=== PATIENT | female | born 1985 | race Caucasian/White ===

== ENCOUNTER 2019-10-30 15:42 | Inpatient (IN) | payer OTHER ==
[2019-10-30] MEDS ORDERED: SODIUM CHLORIDE 0.9% 1,000 ML IV ONE (16:13)
[2019-10-30 16:42] LABS: Basophils # (A) 0.1 k/uL (0-0.2); Basophils % (A) 1 %; Eosinophils # (A) 0.1 k/uL (0-0.7); Eosinophils % (A) 1 %; HCT 38.4 % (34.0-46.0); HGB 12.5 gm/dL (11.4-16.0); Lymphocytes % (A) 17 %; MCH 29.8 pg (25.0-35.0); MCHC 32.7 g/dL (31.0-37.0); MCV 91.2 fL (80.0-100.0); Mean Platelet Volume 8.4; Monocytes # (A) 0.6 k/uL (0-1.0); Monocytes % (A) 5 %; Neutrophils # (A) 8.7 k/uL (1.3-7.7); Neutrophils % (A) 74 %; Platelet Count 367 k/uL (150-450); RBC 4.21 m/uL (3.80-5.40); RDW 12.5 % (11.5-15.5); WBC 11.7 k/uL (3.8-10.6)
[2019-10-30 16:50] LABS: ALT 12 U/L (4-34); AST 24 U/L (14-36); African American GFR (CKD) >90 (>60 ml/min/1.73 sqM); Albumin 4.3 g/dL (3.5-5.0); Alcohol <10 mg/dL; Alkaline Phosphatase 100 U/L (38-126); Anion Gap 10 mmol/L; Blood Urea Nitrogen 7 mg/dL (7-17); Calcium 9.6 mg/dL (8.4-10.2); Carbon Dioxide 23 mmol/L (22-30); Chloride 107 mmol/L (98-107); Glucose 103 mg/dL (74-99); Non-African American GFR(CKD) >90 (>60 ml/min/1.73 sqM); Sodium 140 mmol/L (137-145); Total Bilirubin 0.7 mg/dL (0.2-1.3); Total Protein 7.9 g/dL (6.3-8.2)
[2019-10-30 16:53] LABS: Amorphous Sediment,Urine Rare /hpf; Appearance,Urine Cloudy (Clear); Bacteria,Urine Occasional /hpf; Bilirubin,Urine Negative (Negative); Blood,Urine Small (Negative); Color,Urine Light Yellow; Glucose,Urine (UA) Negative (Negative); Ketones,Urine Negative (Negative); Leukocyte Esterase,Urine Trace (Negative); Nitrite,Urine Negative (Negative); Protein,Urine Negative (Negative); RBC,Urine 2 /hpf (0-5); Specific Gravity,Urine 1.004 (1.001-1.035); Squamous Epithelial Cell,Urine 7 /hpf (0-4); Urobilinogen,Urine <2.0 mg/dL (<2.0); WBC,Urine 5 /hpf (0-5)
--- NOTE | 2019-10-30 16:58 | ED ---
General Adult HPI - General Chief complaint: Altered Mental Status Stated complaint: Altered Mental Status Time Seen by Provider: 10/30/19 15:52 Source: patient, EMS, RN notes reviewed Mode of arrival: EMS Limitations: altered mental status - History of Present Illness Initial comments: Patient is a pleasant 34-year-old female presenting to the emergency department by EMS. Patient was [place] near [place] No reported accident. Patient was unclear where she was. Patient is still unclear where she has. Patient is unclear where she lives however knows that her parents live in [place]. Patient is unclear what year it is. Patient does complain of headache and states it is moderate to severe in the superior portion. Patient then states she has discomfort several other areas including her chest back and abdomen. Patient does not recall being in any automobile accident. Patient does not believe she is . Patient does not believe she has any history of mental health disease. Patient does not believe that she uses street drugs. Patient does not feel confident regarding her answers. Review of Systems ROS Statement: Those systems with pertinent positive or pertinent negative responses have been documented in the HPI. ROS Other: All systems not noted in ROS Statement are negative. Constitutional: Denies: fever Eyes: Denies: eye pain ENT: Denies: ear pain Respiratory: Denies: cough Cardiovascular: Reports: as per HPI Endocrine: Denies: fatigue Gastrointestinal: Reports: abdominal pain Genitourinary: Denies: dysuria Musculoskeletal: Reports: back pain (Bilateral CVA). Denies: arthralgia Neurological: Reports: headache, confusion. Denies: weakness Past Medical History Past Medical History: No Reported History History of Any Multi-Drug Resistant Organisms: None Reported Past Surgical History: No Surgical Hx Reported Smoking Status: Never smoker Past Alcohol Use History: None Reported Past Drug Use History: None Reported General Exam Limitations: altered mental status General appearance: alert, in no apparent distress Head exam: Present: atraumatic, normocephalic Eye exam: Present: normal appearance, PERRL, EOMI ENT exam: Present: normal oropharynx Neck exam: Present: normal inspection. Absent: tenderness, meningismus Respiratory exam: Present: normal lung sounds bilaterally Cardiovascular Exam: Present: regular rate, normal rhythm GI/Abdominal exam: Present: soft, tenderness (Mild diffuse tenderness). Absent: distended Extremities exam: Present: normal inspection. Absent: tenderness Back exam: Present: CVA tenderness (R), CVA tenderness (L) Neurological exam: Present: alert, altered, CN II-XII intact. Absent: oriented X3, motor sensory deficit Expanded Neurological exam: Present: protecting the airway Patient oriented to: Present: person. Absent: place, time Speech: Present: fluid speech Cranial nerves: EOM's Intact: Normal Motor strength exam: RUE: 5, LUE: 5, RLE: 5, LLE: 5 Eye Response: (4) open spontaneously Motor Response: (6) obeys commands Verbal Response: (4) confused conversation Psychiatric exam: Present: normal affect, normal mood Skin exam: Present: normal color Course Vital Signs 10/30/19 15:47 Temperature 98.0 F Pulse Rate 90 Respiratory 16 Rate Blood Pressure 138/73 O2 Sat by Pulse 99 Oximetry EKG Findings - EKG Comments: EKG Findings:: Normal sinus rhythm at 75. DE 12. QRS 88. QT 394. QTC 439. Normal axis. Normal QRS. No acute ST change. Medical Decision Making - Medical Decision Making Patient reevaluated and is somewhat improved. Patient does have a friend at bedside. History does appear somewhat inconsistent. Police are present and discussing with patient. Patient is somewhat delayed in answering specific questions about her past and current living situation however is able to orient 3. Her friend seems to help a little bit. Patient is updated on results. Case was discussed with Dr. Sidhu, who will admit covering for hospital call. - Lab Data Result diagrams: 10/30/19 16:30 10/30/19 16:30 Lab Results 10/30/19 10/30/19 10/30/19 Range/Units 16:30 16:30 16:30 WBC 11.7 H (3.8-10.6) k/uL RBC 4.21 (3.80-5.40) m/uL Hgb 12.5 (11.4-16.0) gm/dL Hct 38.4 (34.0-46.0) % MCV 91.2 (80.0-100.0) fL MCH 29.8 (25.0-35.0) pg MCHC 32.7 (31.0-37.0) g/dL RDW 12.5 (11.5-15.5) % Plt Count 367 (150-450) k/uL Neutrophils % 74 % Lymphocytes % 17 % Monocytes % 5 % Eosinophils % 1 % Basophils % 1 % Neutrophils # 8.7 H (1.3-7.7) k/uL Lymphocytes # 2.0 (1.0-4.8) k/uL Monocytes # 0.6 (0-1.0) k/uL Eosinophils # 0.1 (0-0.7) k/uL Basophils # 0.1 (0-0.2) k/uL PT (9.0-12.0) sec INR (<1.2) APTT (22.0-30.0) sec Sodium 140 (137-145) mmol/L Potassium 4.0 (3.5-5.1) mmol/L Chloride 107 (98-107) mmol/L Carbon Dioxide 23 (22-30) mmol/L Anion Gap 10 mmol/L BUN 7 (7-17) mg/dL Creatinine 0.71 (0.52-1.04) mg/dL Est GFR (CKD-EPI)AfAm >90 (>60 ml/min/1.73 sqM) Est GFR (CKD-EPI)NonAf >90 (>60 ml/min/1.73 sqM) Glucose 103 H (74-99) mg/dL Calcium 9.6 (8.4-10.2) mg/dL Total Bilirubin 0.7 (0.2-1.3) mg/dL AST 24 (14-36) U/L ALT 12 (4-34) U/L Alkaline Phosphatase 100 (38-126) U/L Troponin I (0.000-0.034) ng/mL Total Protein 7.9 (6.3-8.2) g/dL Albumin 4.3 (3.5-5.0) g/dL Urine Color Light Yellow Urine Appearance Cloudy H (Clear) Urine pH 6.0 (5.0-8.0) Ur Specific [place] 1.004 (1.001-1.035) Urine Protein Negative (Negative) Urine Glucose (UA) Negative (Negative) Urine Ketones Negative (Negative) Urine Blood Small H (Negative) Urine Nitrite Negative (Negative) Urine Bilirubin Negative (Negative) Urine Urobilinogen <2.0 (<2.0) mg/dL Ur Leukocyte Esterase Trace H (Negative) Urine RBC 2 (0-5) /hpf Urine WBC 5 (0-5) /hpf Ur Squamous Epith Cells 7 H (0-4) /hpf Amorphous Sediment Rare H (None) /hpf Urine Bacteria Occasional H (None) /hpf Urine HCG, Qual (Not Detectd) Urine Opiates Screen Not Detected (NotDetected) Ur Oxycodone Screen Not Detected (NotDetected) Urine Methadone Screen Not Detected (NotDetected) Ur Propoxyphene Screen Not Detected (NotDetected) Ur Barbiturates Screen Not Detected (NotDetected) U Tricyclic Antidepress Not Detected (NotDetected) Ur Phencyclidine Scrn Not Detected (NotDetected) Ur Amphetamines Screen Not Detected (NotDetected) U Methamphetamines Scrn Not Detected (NotDetected) U Benzodiazepines Scrn Not Detected (NotDetected) Urine Cocaine Screen Not Detected (NotDetected) U Marijuana (THC) Screen Detected H (NotDetected) Serum Alcohol <10 mg/dL 10/30/19 10/30/19 10/30/19 Range/Units 16:30 16:30 16:30 WBC (3.8-10.6) k/uL RBC (3.80-5.40) m/uL Hgb (11.4-16.0) gm/dL Hct (34.0-46.0) % MCV (80.0-100.0) fL MCH (25.0-35.0) pg MCHC (31.0-37.0) g/dL RDW (11.5-15.5) % Plt Count (150-450) k/uL Neutrophils % % Lymphocytes % % Monocytes % % Eosinophils % % Basophils % % Neutrophils # (1.3-7.7) k/uL Lymphocytes # (1.0-4.8) k/uL Monocytes # (0-1.0) k/uL Eosinophils # (0-0.7) k/uL Basophils # (0-0.2) k/uL PT 10.5 (9.0-12.0) sec INR 1.0 (<1.2) APTT 23.5 (22.0-30.0) sec Sodium (137-145) mmol/L Potassium (3.5-5.1) mmol/L Chloride (98-107) mmol/L Carbon Dioxide (22-30) mmol/L Anion Gap mmol/L BUN (7-17) mg/dL Creatinine (0.52-1.04) mg/dL Est GFR (CKD-EPI)AfAm (>60 ml/min/1.73 sqM) Est GFR (CKD-EPI)NonAf (>60 ml/min/1.73 sqM) Glucose (74-99) mg/dL Calcium (8.4-10.2) mg/dL Total Bilirubin (0.2-1.3) mg/dL AST (14-36) U/L ALT (4-34) U/L Alkaline Phosphatase (38-126) U/L Troponin I <0.012 (0.000-0.034) ng/mL Total Protein (6.3-8.2) g/dL Albumin (3.5-5.0) g/dL Urine Color Urine Appearance (Clear) Urine pH (5.0-8.0) Ur Specific [place] (1.001-1.035) Urine Protein (Negative) Urine Glucose (UA) (Negative) Urine Ketones (Negative) Urine Blood (Negative) Urine Nitrite (Negative) Urine Bilirubin (Negative) Urine Urobilinogen (<2.0) mg/dL Ur Leukocyte Esterase (Negative) Urine RBC (0-5) /hpf Urine WBC (0-5) /hpf Ur Squamous Epith Cells (0-4) /hpf Amorphous Sediment (None) /hpf Urine Bacteria (None) /hpf Urine HCG, Qual Not Detected (Not Detectd) Urine Opiates Screen (NotDetected) Ur Oxycodone Screen (NotDetected) Urine Methadone Screen (NotDetected) Ur Propoxyphene Screen (NotDetected) Ur Barbiturates Screen (NotDetected) U Tricyclic Antidepress (NotDetected) Ur Phencyclidine Scrn (NotDetected) Ur Amphetamines Screen (NotDetected) U Methamphetamines Scrn (NotDetected) U Benzodiazepines Scrn (NotDetected) Urine Cocaine Screen (NotDetected) U Marijuana (THC) Screen (NotDetected) Serum Alcohol mg/dL - Radiology Data Radiology results: report reviewed (CT angios of the brain shows no acute process. Computed tomography scan the brain and cervical spine shows no acute process. Computed tomography scan of the chest abdomen and pelvis shows no acute abnormality.) Disposition Clinical Impression: Altered mental status, Amnesia Disposition: ADMITTED IP TO THIS HOSP Is patient prescribed a controlled substance at d/c from ED?: No Referrals: None,Stated [Primary Care Provider] - 1-2 days Decision Time: 19:06
[2019-10-30 16:59] LABS: Partial Thromboplastin Time 23.5 sec (22.0-30.0); Prothrombin Time 10.5 sec (9.0-12.0)
[2019-10-30 17:00] LABS: Amphetamine Screen,Urine Not Detected (NotDetected); Barbiturate Screen,Urine Not Detected (NotDetected); Benzodiazepines Screen,Urine Not Detected (NotDetected); Cocaine Screen,Urine Not Detected (NotDetected); Methadone Screen, Urine Not Detected (NotDetected); Opiate Screen,Urine Not Detected (NotDetected); Oxycodone Screen, Urine Not Detected (NotDetected); Phencyclidine Screen,Urine Not Detected (NotDetected); Tricyclic Antidepressant,Urine Not Detected (NotDetected); Urn Cannabinoid Scrn Detected (NotDetected)
--- NOTE | 2019-10-30 17:45 | CT ---
EXAMINATION TYPE: CT brain diane mccall con DATE OF EXAM: 10/30/2019 COMPARISON: None HISTORY: severe headache, possible trauma CT DLP: 1248.9 mGycm Automated exposure control for dose reduction was used. TECHNIQUE: CT scan of the head and cervical spine are performed without contrast. FINDINGS: There is no acute intracranial hemorrhage, mass effect, or midline shift identified. The ventricles and sulci are within normal limits in size. The globes are intact and the visualized sin uses are clear. Cervical spine is visualized in its entirety from C1 through upper thoracic levels and demonstrates s atisfactory alignment without evidence of acute fracture or dislocation. Prevertebral soft tissue ap pears within normal limits. The C1-C2 articulation is unremarkable. IMPRESSION: 1. There is no acute fracture or dislocation evident in the cervical spine. 2. No acute intracranial hemorrhage, mass effect, or midline shift is seen.
--- NOTE | 2019-10-30 17:52 | CT ---
EXAMINATION TYPE: CT ChestAbdPelvis w con DATE OF EXAM: 10/30/2019 COMPARISON: None HISTORY: severe headache, possible trauma CT DLP: 894.3 mGycm Automated exposure control for dose reduction was used. CONTRAST: CT scan of the chest, abdomen and pelvis is performed without Oral Contrast and with IV Con trast, patient injected with 100 mL of Isovue 370. FINDINGS: LUNGS: The lungs are grossly clear, there is no concerning parenchymal mass or nodule identified. T here is no pleural effusion or pneumothorax seen. The tracheobronchial tree is patent. MEDIASTINUM: There are no greater than 1 cm hilar or mediastinal lymph nodes. No pericardial effusi on is seen. OTHER: No additional significant abnormality is seen. LIVER/GB: No significant abnormality is appreciated. PANCREAS: No significant abnormality is seen. SPLEEN: No significant abnormality is seen. ADRENALS: No significant abnormality is seen. KIDNEYS: No significant abnormality is seen. BOWEL: No significant abnormality is seen. REPRODUCTIVE ORGANS: No gross abnormality seen. LYMPH NODES: No greater than 1 cm abdominal or pelvic lymph nodes are appreciated. OSSEOUS STRUCTURES: No significant abnormality is seen. OTHER: No acute vascular findings. IMPRESSION: No acute osseous fracture, abnormal fluid collection, or evidence of solid organ injury i n the thorax, abdomen, or pelvis.
--- NOTE | 2019-10-30 18:05 | CT ---
EXAMINATION TYPE: CT angio head with contrast and with 3-D reconstruction renderings DATE OF EXAM: 10/30/2019 5:20 PM HISTORY: severe headache, possible trauma TECHNIQUE: Performed with IV Contrast, patient injected with 100 mL of Isovue 370. Automated exposure control for dose reduction was used. 3-D reconstructions. CT DLP: 1016.6 mGycm COMPARISON: CT 10/30/2019 FINDINGS: The anterior and posterior arterial circulation is well visualized, and is negative for aneurysm, yesenia ling defect, or focal stenosis. The dural venous sinuses are patent. The post contrast enhancement pattern is unremarkable. No incidental findings. IMPRESSION: NEGATIVE EXAMINATION.
[2019-10-30] MEDS ORDERED: ACETAMINOPHEN TAB 500 MG TAB PO STA (18:28)
[2019-10-30] MEDS ORDERED: NALOXONE 0.4 MG/ML 1 ML VIAL IV PRN (19:11)
[2019-10-30] MEDS ORDERED: ACETAMINOPHEN TAB 325 MG TAB PO STA (23:28)
[2019-10-30] MEDS: SODIUM CHLORIDE 0.9% 1,000 ML IV SCH (23:44)
--- NOTE | 2019-10-31 01:20 | P.HPIM ---
History of Present Illness H&P Date: 10/30/19 Patient is a 34-year-old female with no known PMH who was brought into the ED by EMS and and in police custody after she was found wandering near the [place]. The patient had reported to the EMS that she had fallen into a [place] earlier today and had hit her head and subsequently lost her memory. The patient reported that she lives [place], with her brother, where she feeds the cats and dogs. She notes that she was trying to walk to a nearby store 6 miles away, which would take her roughly 2 hours by foot. She reports that she does not have any transportation and her brother can be unreliable. The patient reports that her father lives in [place] and her mother lives in [place] who also has custody of her children. The patient also stated that she has 9 step- brothers in [place], who visit her often. She reported that they go hunting and have bon-fires. The patient endorsed a mild to moderate headache along with some diffuse mild neck pain. She denied feeling concerned for her safety. She denied fever, chills, chest pain, nausea, vomiting, abdominal pain. She noted that she feels well and thinks she can be discharged home. She however was unable to provide details regarding the farm where she does live. The patient also denied any illicit substance use. Discussed the case in detail the patient's ED RN and the accompanying police officers. As per the EMS report, when the patient was discovered at the roadside, she was confused. The patient had a cell phone on her which had a single phone number on it, of a contact by the name of Brielle. The EMS contacted the said person who then arrived at the emergency room. As per the RN, Brielle appeared flustered and attempted to convince the patient to leave immediately. She however also had reported to the RN that she barely knows the patient. When the RN attempted to obtain contact information regarding the patient's said brother, the patient gave the name "Prashant". Brielle however mentioned that the brother is instead the patient's boyfriend who goes by the name of Flo. She refused to provide a last name. Brielle then dialed the phone for the RN to speak to Flo who noted that he is in fact the patient's boyfriend and he is concerned for her safety though is not able to come to the hospital to see her. When the RN informed Brielle that the patient continues to be confused and will be staying overnight in the hospital, Brielle reportedly became very upset and anxious. The patient underwent an extensive evaluation in the emergency room with a head/C-spine CT unremarkable, and a chest/abdome/ pelvis CT also unremarkable. EKG revealed normal sinus rhythm at 75 bpm with sinus arrhythmia. Laboratory ev aluation revealed a WBC count of 11.7, hemoglobin 12.5, platelets 367, sodium 140, potassium 4.0, BUN 7, creatinine 0.71, and a glucose of 103, with troponin less than 0.012. Review of Systems Pertinent positives and negatives as discussed in HPI, a complete review of sys tems was performed and all other systems are negative. Past Medical History Past Medical History: No Reported History History of Any Multi-Drug Resistant Organisms: None Reported Past Surgical History: No Surgical Hx Reported Smoking Status: Never smoker Past Alcohol Use History: None Reported Past Drug Use History: None Reported Medications and Allergies Home Medications Medication Instructions Recorded Confirmed Type No Known Home Medications 10/30/19 10/30/19 History Allergies Allergy/AdvReac Type Severity Reaction Status Date / Time Penicillins Allergy Rash/Hives Verified 10/30/19 19:14 Physical Exam Vitals: Vital Signs Temp Pulse Resp BP Pulse Ox 10/30/19 22:26 96.9 F L 79 16 139/88 97 10/30/19 19:35 98 16 153/85 99 10/30/19 15:47 98.0 F 90 16 138/73 99 Intake and Output 10/30/19 10/30/19 10/31/19 14:59 22:59 06:59 Other: Weight 68.039 kg General: non toxic, no distress, appears at stated age, normal weight Derm: no unusual rashes/lesions no unusual ecchymoses, warm, dry Head: atraumatic, normocephalic, symmetric Eyes: EOMI, no lid lag, anicteric sclera, pupils equal round reactive to light ENT: Nose and ears atraumatic, no thrush, no pharyngeal erythema Neck: No thyromegaly, no cervical lymphadenopathy, trachea midline, supple Mouth: no lip lesion, mucus membranes moist Cardiovascular: S1S2 reg, no murmur, positive posterior tibial pulse bilateral, no edema, capillary refill less than 2 seconds Lungs: CTA bilateral, no rhonchi, no rales , no accessory muscle use Abdominal: soft, nontender to palpation, no guarding, no appreciable organomegaly, normal bowel sounds Ext: no gross muscle atrophy, muscle strength 5 out of 5 in all 4 extremities grossly, no contractures, Neuro: CN II-XI grossly intact, light touch intact all 4 extremities, finger to nose within normal limits, Psych: Awake, alert, oriented to person, knows she is in [place] though unable to recall that she is in [place], despite being told by multiple providers previously, oriented to time Results CBC & Chem 7: 10/30/19 16:30 10/30/19 16:30 Labs: Abnormal Lab Results - Last 24 Hours (Table) 10/30/19 10/30/19 10/30/19 Range/Units 16:30 16:30 16:30 WBC 11.7 H (3.8-10.6) k/uL Neutrophils # 8.7 H (1.3-7.7) k/uL Glucose 103 H (74-99) mg/dL Urine Appearance Cloudy H (Clear) Urine Blood Small H (Negative) Ur Leukocyte Esterase Trace H (Negative) Ur Squamous Epith Cells 7 H (0-4) /hpf Amorphous Sediment Rare H (None) /hpf Urine Bacteria Occasional H (None) /hpf U Marijuana (THC) Screen Detected H (NotDetected) Assessment and Plan Plan: Altered mental status, unclear etiology -Concerns regarding possible abuse/human trafficking -Neuro checks -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
[2019-10-31 07:23] LABS: Basophils % (A) 1 %; Eosinophils # (A) 0.3 k/uL (0-0.7); Eosinophils % (A) 3 %; HCT 38.8 % (34.0-46.0); HGB 12.4 gm/dL (11.4-16.0); Lymphocytes # (A) 2.3 k/uL (1.0-4.8); Lymphocytes % (A) 24 %; MCH 29.4 pg (25.0-35.0); MCHC 31.9 g/dL (31.0-37.0); MCV 91.9 fL (80.0-100.0); Mean Platelet Volume 8.5; Monocytes # (A) 0.6 k/uL (0-1.0); Monocytes % (A) 6 %; Neutrophils # (A) 6.1 k/uL (1.3-7.7); Neutrophils % (A) 65 %; Platelet Count 371 k/uL (150-450); RBC 4.22 m/uL (3.80-5.40); RDW 12.4 % (11.5-15.5); WBC 9.5 k/uL (3.8-10.6)
[2019-10-31 07:42] LABS: ALT 11 U/L (4-34); AST 18 U/L (14-36); African American GFR (CKD) >90 (>60 ml/min/1.73 sqM); Albumin 3.8 g/dL (3.5-5.0); Alkaline Phosphatase 78 U/L (38-126); Anion Gap 7 mmol/L; Blood Urea Nitrogen 6 mg/dL (7-17); Calcium 9.3 mg/dL (8.4-10.2); Carbon Dioxide 28 mmol/L (22-30); Chloride 106 mmol/L (98-107); Glucose 85 mg/dL (74-99); Non-African American GFR(CKD) >90 (>60 ml/min/1.73 sqM); Potassium 4.3 mmol/L (3.5-5.1); Sodium 141 mmol/L (137-145); Total Bilirubin 0.5 mg/dL (0.2-1.3); Total Protein 7.2 g/dL (6.3-8.2)
[2019-10-31] MEDS: ACETAMINOPHEN TAB 325 MG TAB PO PRN ×2 (14:13→23:35)
[2019-10-31] MEDS ORDERED: DIAZEPAM 2 MG TAB PO STA (16:18)
--- NOTE | 2019-10-31 16:19 | P.PN ---
Subjective Progress Note Date: 10/31/19 Principal diagnosis: Altered mental status Patient was seen and examined. No acute events overnight. Inconsolable. Patient very tearful and crying, upset over the arrest of her fianc. Patient states that she was found down near [place] when she was simply trying to walk to a store 6 miles away. It is difficult to obtain much more information given the mood of this patient at this time. She denies any chest pain, shortness breath or palpitations. No nausea or vomiting. No fever or chills. She does complain of bilateral flank pain but denies any dysuria or abdominal discomfort. States that she is forgetful person due to history of concussions in the past. Objective - Vital Signs Vital signs: Vital Signs Temp 98.2 F 10/31/19 07:00 Pulse 72 10/31/19 08:50 Resp 12 10/31/19 08:50 BP 118/68 10/31/19 07:00 Pulse Ox 100 10/31/19 07:00 Intake & Output 10/30/19 10/31/19 10/31/19 18:59 06:59 18:59 Weight 68.039 kg 68.039 kg Other: Voiding Method Toilet Toilet # Voids 2 - Exam General: [non toxic], [no distress], [appears at stated age] Derm: [warm], [dry] Head: [atraumatic], [normocephalic], [symmetric] Eyes: [EOMI], [no lid lag], [anicteric sclera] Mouth: [no lip lesion], [mucus membranes moist] Cardiovascular: [S1S2 reg], [no murmur], [positive posterior tibial pulse bilateral], Lungs: [CTA bilateral], [no rhonchi, no rales] , [no accessory muscle use] Abdominal: [soft], [ nontender to palpation], [no guarding], [no appreciable organomegaly] Ext: [no gross muscle atrophy], [no edema], [no contractures] Neuro: [no focal neuro deficits] Psych: [Alert], [oriented], [appropriate affect] - Labs CBC & Chem 7: 10/31/19 06:41 10/31/19 06:41 Labs: Abnormal Lab Results - Last 24 Hours (Table) 10/30/19 10/30/1910/30/20 Range/Units 16:30 16:30 16:30 WBC 11.7 H (3.8-10.6) k/uL Neutrophils # 8.7 H (1.3-7.7) k/uL BUN (7-17) mg/dL Glucose 103 H (74-99) mg/dL Urine Appearance Cloudy H (Clear) Urine Blood Small H (Negative) Ur Leukocyte Esterase Trace H (Negative) Ur Squamous Epith Cells 7 H (0-4) /hpf Amorphous Sediment Rare H (None) /hpf Urine Bacteria Occasional H (None) /hpf U Marijuana (THC) Screen Detected H (NotDetected) 10/31/19 Range/Units 06:41 WBC (3.8-10.6) k/uL Neutrophils # (1.3-7.7) k/uL BUN 6 L (7-17) mg/dL Glucose (74-99) mg/dL Urine Appearance (Clear) Urine Blood (Negative) Ur Leukocyte Esterase (Negative) Ur Squamous Epith Cells (0-4) /hpf Amorphous Sediment (None) /hpf Urine Bacteria (None) /hpf U Marijuana (THC) Screen (NotDetected) Assessment and Plan Assessment: Altered mental status with concerns for possible abuse and human trafficking? Marijuana abuse Abnormal urinalysis CT brain negative. CT C-spine negative. CT head and neck negative. Blood alcohol negative. Jules CT negative. Plans: Follow neurology and psychiatry consultation. Will need collateral information. Continue sitter. Elopement precautions. UDS positive marijuana. Plans: Adivsed to Quit. UA + leukocyte esterase with squamous epithelial cells. Patient with flank pain but Jules CT negative for Pyelonephritis. Plans: Repeat urinalalysis.
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
[2019-11-01] MEDS: SODIUM CHLORIDE 0.9% 1,000 ML IV SCH ×2 (08:35→20:52)
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
[2019-11-01 15:42] LABS: Amorphous Sediment,Urine Few /hpf; Appearance,Urine Cloudy (Clear); Bacteria,Urine Many /hpf; Bilirubin,Urine Negative (Negative); Blood,Urine Negative (Negative); Color,Urine Yellow; Glucose,Urine (UA) Negative (Negative); Hyaline Casts,Urine 1 /lpf (0-2); Ketones,Urine Negative (Negative); Leukocyte Esterase,Urine Moderate (Negative); Mucus,Urine Occasional /hpf; Nitrite,Urine Positive (Negative); Protein,Urine Trace (Negative); RBC,Urine 3 /hpf (0-5); Specific Gravity,Urine 1.022 (1.001-1.035); Squamous Epithelial Cell,Urine 4 /hpf (0-4); Urobilinogen,Urine <2.0 mg/dL (<2.0); WBC,Urine 16 /hpf (0-5)
--- NOTE | 2019-11-01 16:01 | ECHOF ---
Referral Reason:possible syncope MEASUREMENTS -------- HEIGHT: 157.5 cm WEIGHT: 68.0 kg BP: IVSd: 0.9 cm (0.6 - 1.1) LVIDd: 3.9 cm (3.9 - 5.3) LVPWd: 1.0 cm (0.6 - 1.1) IVSs: 1.2 cm LVIDs: 2.5 cm LVPWs: 1.6 cm LAESV Index (A-L): 16.62 ml/m Ao Diam: 2.5 cm (2.0 - 3.7) AV Cusp: 1.7 cm (1.5 - 2.6) LA Diam: 2.1 cm (2.7 - 3.8) MV EXCURSION: 14.967 mm (> 18.000) MV EF SLOPE: 150 mm/s (70 - 150) EPSS: 0.5 cm MV E Alfonso: 1.17 m/s MV A Alfonso: 0.63 m/s MV E/A Ratio: 1.85 RAP: 5.00 mmHg RVSP: 14.05 mmHg TAPSE: 24.40 mm FINDINGS -------- Sinus rhythm. This was a technically good study. The left ventricular size is normal. Left ventricular wall thickness is normal. Overall left vent ricular systolic function is normal with, an EF between 55 - 60 %. The diastolic filling pattern is normal The right ventricle is normal in size. The right ventricular systolic function is normal. The left atrial size is normal. Normal LA size by volume 22+/-6 ml/m2. The right atrial size is normal. Interatrial and interventricular septum intact. The aortic valve is trileaflet and appears structurally normal. The mitral valve is normal. There is trace mitral regurgitation. The tricuspid valve appears structurally normal. Trace tricuspid regurgitation present. Right colette tricular systolic pressure is normal at < 35 mmHg. There is no pulmonic regurgitation present. The aortic root size is normal. Normal inferior vena cava with normal inspiratory collapse consistent with estimated right atrial pre ssure of 5 mmHg. There is no pericardial effusion. CONCLUSIONS -------- 1. Sinus rhythm. 2. This was a technically good study. 3. The left ventricular size is normal. 4. Left ventricular wall thickness is normal. 5. Overall left ventricular systolic function is normal with, an EF between 55 - 60 %. 6. The diastolic filling pattern is normal 7. The right ventricle is normal in size. 8. The right ventricular systolic function is normal. 9. The left atrial size is normal. 10. Normal LA size by volume 22+/-6 ml/m2. 11. The right atrial size is normal. 12. Interatrial and interventricular septum intact. 13. The aortic valve is trileaflet and appears structurally normal. 14. The mitral valve is normal. 15. There is trace mitral regurgitation. 16. The tricuspid valve appears structurally normal. 17. Trace tricuspid regurgitation present. 18. Right ventricular systolic pressure is normal at < 35 mmHg. 19. There is no pulmonic regurgitation present. 20. The aortic root size is normal. 21. Normal inferior vena cava with normal inspiratory collapse consistent with estimated right atrial pressure of 5 mmHg. 22. There is no pericardial effusion. [employer]SPERSONS: Sheridan Fay RDCS
[2019-11-01] MEDS: DIAZEPAM 2 MG TAB PO PRN (17:35)
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
--- NOTE | 2019-11-01 20:51 | US ---
EXAMINATION TYPE: US kidneys/renal and bladder DATE OF EXAM: 11/01/2019 COMPARISON: Correlation CT 10/30/2019 CLINICAL HISTORY: 34-year-old female flank pain. TECHNIQUE: Multiple sonographic images of the kidneys and bladder are obtained. FINDINGS: EXAM MEASUREMENTS: Right Kidney: 10.5 x 3.8 x 5.6 cm Left Kidney: 10.6 x 5.6 x 5.9 cm No hydronephrosis on either side. Bladder: Suboptimally assessed as it is not well distended Bilateral Jets seen: No IMPRESSION: No hydronephrosis. Poor distention of the bladder limits its evaluation.
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
[2019-11-01] MEDS ORDERED: traZODone HCL 50 MG TAB PO PRN (22:38)
[2019-11-02] MEDS: DIAZEPAM 2 MG TAB PO PRN ×2 (01:58→18:35)
[2019-11-02] MEDS: ACETAMINOPHEN TAB 325 MG TAB PO PRN ×3 (04:15→20:09)
[2019-11-02] MEDS: ARIPiprazole 2 MG TAB PO SCH (10:19)
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
[2019-11-02] MEDS: LIDOCAINE 5% PATCH TOPICAL SCH (16:30)
[2019-11-02] MEDS: SODIUM CHLORIDE 0.9% 1,000 ML IV SCH (20:10)
[2019-11-03] MEDS: LIDOCAINE 5% PATCH TOPICAL SCH (08:39)
[2019-11-03] MEDS: ACETAMINOPHEN TAB 325 MG TAB PO PRN (08:40)
[2019-11-03] MEDS: ARIPiprazole 2 MG TAB PO SCH (08:42)
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
--- NOTE | 2019-11-03 12:03 | P.PN ---
Subjective This is a pleasant 34-year-old female with past medical history significant for migraine headaches and PTSD. We are following her secondary to possible syncopal episode. She is seen and examined sitting up in bed in no acute distress. She is complaining of chest wall tenderness on the left. She denies shortness of breath, dizziness or palpitations. Telemetry was not applied until this morning. So far there has been no arrhythmias noted. Orthostatic blood pressures unremarkable with no acute changes with position changes. Blood pressure 126/86 heart rate 96 afebrile and maintaining oxygen saturation on room air. GENERAL: Well-appearing, well-nourished and in no acute distress. NECK: Supple without JVD or thyromegaly. LUNGS: Breath sounds clear to auscultation bilaterally. Respiration equal and unlabored. No wheezes, rales or rhonchi. HEART: Regular rate and rhythm without murmurs, rubs or gallops. S1 and S2 heard. Mild point tenderness over the left clavicle. EXTREMITIES: Normal range of motion, no edema. No clubbing or cyanosis. Peripheral pulses intact. ASSESSMENT Syncope Altered mental status on admission, improved. Chronic marijuana dependence PLAN Recommend outpatient 24-hour Holter monitor. Follow up in the office with Dr. Corona in 2 weeks. Nurse Practitioner note has been reviewed, I agree with a documented findings and plan of care. Patient was seen and examined. Objective - Vital Signs Vital signs: Vital Signs Temp 98 F 11/03/19 10:54 Pulse 96 11/03/19 10:54 Resp 18 11/03/19 10:54 BP 126/86 11/03/19 10:54 Pulse Ox 99 11/03/19 07:00 Intake & Output 11/02/19 11/03/19 11/03/19 18:59 06:59 18:59 Intake Total 340 550 696 Balance 340 550 696 Intake: Oral 340 550 696 Other: Voiding Method Toilet # Voids 1 2 - Labs CBC & Chem 7: 10/31/19 06:41 10/31/19 06:41 Labs: Microbiology - Last 24 Hours (Table) 11/01/19 13:00 Urine Culture - Preliminary Urine,Voided Gram Neg Bacilli
[2019-11-03] MEDS: DIAZEPAM 2 MG TAB PO PRN ×2 (13:25→21:38)
--- NOTE | 2019-11-03 15:32 | P.PN ---
Subjective Progress Note Date: 11/03/19 Principal diagnosis: Generalized anxiety disorder, lack of income, inadequate housing, incarceration of john She is a 34-year-old female admitted to medicine service for evaluation of an altered mental status. The hospitalist consult to psychiatry on 10/31/2023 history of mental illness and hallucinations. Dr. No completed the initial psychiatric consultation. The hospitalist requested clarification of Dr. No's recommendations. I reviewed the medical record and interviewed the patient. She complained of increasing anxiety that she attributes to her multiple stressors. She moved from [place] to [place] with her john. They've been living on a farm and she was supported by her john. She has no relatives or family in [place]. Since her medical hospitalization boyfriend was arrested and will be extradited back to [place] for multiple felony violations. She is unable to return to where they had lived. She has no income to pay for residence, food or transportation. She is desperately calling family and friends to assist her with her circumstances. She stated that she recently has been speaking with her father whom she thinks will buy her a plane ticket to fly to [place] to live with him and his at least temporarily. She asked for assistance with transportation to the [facility]. She feels anxious, hopeless and helpless. These problems have developed after her john's arrest and incarceration. She denied that she is having thoughts of or suicide. She denied periods of elevated mood or sustained irrit ability consistent with carmenza or hypomania. She denied psychotic symptoms such as hallucinations, paranoia, ideas reference etc. She smokes marijuana but denied use of other drugs get high, help her sleep or change her mood (her UDS on admission was positive only for marijuana and her serum alcohol was less than 10). She has a history of outpatient mental health treatment and prescription of ps ychotropic medications. She denied psychiatric hospitalizations. Objective - Vital Signs Vital signs: Vital Signs Temp 98 F 11/03/19 10:54 Pulse 96 11/03/19 10:54 Resp 18 11/03/19 10:54 BP 126/86 11/03/19 10:54 Pulse Ox 99 11/03/19 07:00 Intake & Output 11/02/19 11/03/19 11/03/19 18:59 06:59 18:59 Intake Total 340 550 696 Balance 340 550 698 Intake: Oral 340 550 69 Other: Voiding Method Toilet # Voids 1 2 - Exam She presented as a disheveled appearing and anxious 34-year-old female who looked older than his stated age. She had no distinguishing features or prominent physical abnormalities. She had a distressed facial expression. She was alert and oriented to person, place and time. She showed no abnormality of psychomotor activity. Her speech was spontaneous with normal rate, rhythm and volume. Her affect was anxious. She denied suicidal ideation or wishes. She expressed depressive feelings such as hopelessness and helplessness but denied feelings of worthlessness. She did not express phobias, ideas reference, paranoid ideation or delusional thoughts. Her thinking was abstract and associations were coherent, logical and goal directed. She denied hallucinations and did not appear to be responding to internal stimuli. - Labs CBC & Chem 7: 10/31/19 06:41 10/31/19 06:41 Labs: Microbiology - Last 24 Hours (Table) 11/01/19 13:00 Urine Culture - Preliminary Urine,Voided Gram Neg Bacilli Assessment and Plan Assessment: She is a 34-year-old female with multiple psychosocial issues She is complaining of anxiety and depression uncomplicated by suicidality. There is no indication for psychiatric treatment at this time. She does not need the presence of a sitter. Plan: Discontinue one-to-one. Consult social welfare research worker to assist her with transportation to [facility]. Since she is not planning to remain in [place] has not eaten referred for community mental health services. Thank you for this consult.
[2019-11-03] MEDS: ERTAPENEM 1 GM in SODIUM CHLORIDE 0.9% 50 ML IVPB SCH (18:54)
[2019-11-03] MEDS: SODIUM CHLORIDE 0.9% 1,000 ML IV SCH (20:28)
[2019-11-03 21:28] LABS: Hepatitis A Antibody IgM Non-Reactive (Non-Reactive); Hepatitis B Core IgM Non-Reactive (Non-Reactive); Hepatitis B Surface Antigen Non-Reactive (Non-Reactive); Hepatitis C IgG Antibody Non-Reactive (Non-Reactive)
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
[2019-11-04 07:36] VITALS: RESP 16
[2019-11-04] MEDS: DIAZEPAM 2 MG TAB PO PRN (08:06)
[2019-11-04] MEDS: LIDOCAINE 5% PATCH TOPICAL SCH (08:06)
[2019-11-04] MEDS: ARIPiprazole 2 MG TAB PO SCH (08:59)
[2019-11-04] MEDS: ACETAMINOPHEN TAB 325 MG TAB PO PRN (09:01)
--- NOTE | 2019-11-04 09:14 | P.PN ---
Subjective This is a pleasant 34-year-old female with past medical history significant for migraine headaches and PTSD. We are following her secondary to possible syncopal episode. She is seen and examined laying flat in bed in no acute distress. She denies chest pain, dizziness, shortness of breath or palpitations. Telemetry tracings reviewed, multiple episodes of sinus tachycardia noted. Blood pressure 127/76 heart rate this morning 83 afebrile and maintaining oxygen saturation on room air. TSH 2.74. GENERAL: Well-appearing, well-nourished and in no acute distress. NECK: Supple without JVD or thyromegaly. LUNGS: Breath sounds clear to auscultation bilaterally. Respiration equal and unlabored. No wheezes, rales or rhonchi. HEART: Regular rate and rhythm without murmurs, rubs or gallops. S1 and S2 heard. Mild point tenderness over the left clavicle. EXTREMITIES: Normal range of motion, no edema. No clubbing or cyanosis. Peripheral pulses intact. ASSESSMENT Syncope Altered mental status on admission, improved. Chronic marijuana dependence PLAN Telemetry tracings for the previous 24 hours reviewed. Sinus tachycardia predominantly noted. No acute arrhythmia. Initiate lopressor 25 mg daily. Stable for discharge, follow up with Dr. Corona upon discharge. We will follow as needed, please call with further questions or concerns. Nurse Practitioner note has been reviewed, I agree with a documented findings and plan of care. Patient was seen and examined. Objective - Vital Signs Vital signs: Vital Signs Temp 97.7 F 11/04/19 07:00 Pulse 95 11/04/19 07:00 Resp 16 11/04/19 07:00 BP 125/84 11/04/19 07:00 Pulse Ox 97 11/04/19 07:00 Intake & Output 11/03/19 11/04/19 11/04/19 18:59 06:59 18:59 Intake Total 992 170 Balance 992 170 Intake: Intake, IV Titration 50 Amount Ertapenem 1 gm In Sodium 50 Chloride 0.9% 50 ml @ 100 mls/hr IVPB Q24H MEI Rx# :[id number] Oral 992 120 Other: Voiding Method Toilet # Voids 1 1 - Labs CBC & Chem 7: 10/31/19 06:41 10/31/19 06:41 Labs: Microbiology - Last 24 Hours (Table) 11/01/19 13:00 Urine Culture - Final Urine,Voided Klebsiella pneumoniae
[2019-11-04] MEDS ORDERED: METOPROLOL TARTRATE 25 MG TAB PO SCH (09:15)
--- NOTE | 2019-11-04 11:55 | P.PN ---
Subjective Progress Note Date: 11/04/19 Principal diagnosis: Anxiety and depression Patient was seen and examined. No acute events overnight. 24-hour telemetry shows sinus tachycardia. Patient refusing Abilify. Patient states that she plans on going to the airport and flying to [place] to go live with her dad at this time. She denies any chest pain, shortness breath or palpitations. No nausea or vomiting. No fever or chills. Objective - Vital Signs Vital signs: Vital Signs Temp 97.7 F 11/04/19 07:00 Pulse 95 11/04/19 07:00 Resp 16 11/04/19 07:00 BP 125/84 11/04/19 07:00 Pulse Ox 97 11/04/19 07:00 Intake & Output 11/03/19 11/04/19 11/04/19 18:59 06:59 18:59 Intake Total 992 170 Balance 992 170 Intake: Intake, IV Titration 50 Amount Ertapenem 1 gm In Sodium 50 Chloride 0.9% 50 ml @ 100 mls/hr IVPB Q24H [facility] Rx# :[id number] Oral 992 120 Other: Voiding Method Toilet # Voids 1 1 - Exam General: [non toxic], [no distress], [appears at stated age] Derm: [warm], [dry] Head: [atraumatic], [normocephalic], [symmetric] Eyes: [EOMI], [no lid lag], [anicteric sclera] Mouth: [no lip lesion], [mucus membranes moist] Cardiovascular: [S1S2 reg], [no murmur], [positive DP pulse bilateral], Lungs: [CTA bilateral], [no rhonchi, no rales] , [no accessory muscle use] Abdominal: [soft], [ nontender to palpation], [no guarding], [no appreciable organomegaly], [bilateral CVA tenderness] Ext: [no gross muscle atrophy], [no edema], [no contractures] Neuro: [no focal neuro deficits] Psych: [Alert], [oriented], [appropriate affect] - Labs CBC & Chem 7: 10/31/19 06:41 10/31/19 06:41 Labs: Microbiology - Last 24 Hours (Table) 11/01/19 13:00 Urine Culture - Final Urine,Voided Klebsiella pneumoniae Assessment and Plan Assessment: UTI with ESBL Altered mental status with concerns for possible abuse and human trafficking? Sinus tachycardia on telemetry Stress and anxiety with risk of self-harm Marijuana abuse UA + leukocyte esterase with squamous epithelial cells. Repeat UA shows positive nitrite. Renal ultrasound negative for hydronephrosis. Patient with flank pain but Jules CT negative for Pyelonephritis. Urine culture positive ESBL. Plans: Ertapenem started by infectious disease. Recommends 1-2 doses, completed. No antibiotics on discharge. CT brain negative. CT C-spine negative. CT head and neck negative. Blood alcohol negative. Jules CT negative. TSH and B12 within normal limits. RPR and hepatitis panel negative. Plans: Follow neurology and psychiatry consultation. Resolved. Patient without any syncope or dizziness while inpatient. Echocardiogram shows EF 55-60% with normal wall motion. Telemetry shows sinus tachycardia. Plans: Cardiology recommends outpatient follow-up. Patient has not been dizzy while inpatient and has been ambulating the hallways without any difficulties. Telemetry monitoring. Started on metoprolol by mouth. According to case management note, patient reported that she did "not want to be on this earth anymore". Psychiatry started Abilify, patient self discontinued due to side effects. Plans: Psychiatrist cleared the patient for discharge. Valium as needed for anxiety. UDS positive marijuana. Plans: Adivsed to Quit. [Patient reports feeling safe outside of this hospital. She will be discharged, social work to cover cost to take patient to report. Patient has been in cont act with her father who lives in [place] was agreed to take her in. [place] DC today.]
[2019-11-04] MEDS: ERTAPENEM 1 GM in SODIUM CHLORIDE 0.9% 50 ML IVPB SCH (13:05)
--- NOTE | 2019-11-04 14:09 | PN ---
PROGRESS NOTE DATE OF SERVICE: 11/04/2019 REASON FOR FOLLOWUP: ESBL Klebsiella UTI. INTERVAL HISTORY: The patient is currently afebrile. The patient has been breathing comfortably. The patient denies having any chest pain, shortness of breath, or cough. No nausea. No vomiting. No abdominal pain. No diarrhea. PHYSICAL EXAMINATION: Blood pressure 125/84 with a pulse of 95, temperature 97.7, she is 97% on room air. General description is a middle-aged female up in the room in no distress. RESPIRATORY SYSTEM: Unlabored breathing. Clear to auscultation anteriorly. HEART: S1, S2. Regular rate and rhythm. ABDOMEN: Soft. No tenderness. LABS: Repeat urine culture so far pending. DIAGNOSTIC IMPRESSION AND PLAN: Patient with positive urine culture with Klebsiella pneumoniae which shows ESBL, possible colonizer, contaminant, or this is mild urinary tract infection/cystitis. She was given a dose of Invanz today, that should be more than enough and no need for antibiotic on discharge. This was discussed with the RN. Continue supportive care. MMNIVIAL / ADRIENNEN: [id number] /
[2019-11-04 14:55] VITALS: BP 121/80; PULSE 66; TEMP 98
--- NOTE | 2019-11-04 16:37 | CDI ---
Documentation Clarification Form Date: 11/04/2019 04:05:47 PM From: Uzma Ward RN, CCDS Admit Date: 11/01/2019 02:14:00 PM Patient Name: Fina Nam Visit Number: [id number] Discharge Date: ATTENTION: The Clinical Documentation Specialists (CDI) and [facility] Coding Staff appreciate your assistance in clarifying documentation. Please respond to the clarification below the line at the bottom and electronically sign. The CDI & [facility] Coding staff will review the response and follow-up if needed. Please note: Queries are made part of the Legal Health Record. If you have any questions, please contact the author of this message via ITS. Dr. Ole Busch Altered Mental Status was documented in the progress note on 11/01/19 and further clarification is needed for the type of mental status and cause if known. History/Risk Factors: Marijuana Abuse, PTSD Clinical Indicators: 11/01/19 in you documentation altered mental status is noted, with urinalysis now showing positive nitrite. Urine culture on - at 1300 showing Klebsiella pneumonia. Labs: UDS 10/31/19 marijuana Detected Vital signs (day of admission 11/01/19 07:00) 134/89 80 16 98.1 11/01/19: Bladder/ultrasound No hydronephrosis 11/01/19 ECHO: Sinus rhythm, EF between 55-60 % CT Brain 10/30/19 no acute intracranial hemorrhage, mass effect Treatment: Neurological assessment Q8HR 11/01/19: Rocephin 1 gm IV Q 8HR (dc 11/03/19) 11/03/19 Invanz IV Q 24H In your professional opinion, please clarify the etiology of the Altered Mental Status, if known. Metabolic Encephalopathy Other condition (please specify) Unable to determine (Last Revision: December 2017) unable to determine - patient with likely underlying psychiatry disorder MTDD
[2019-11-05] MEDS ORDERED: ARIPiprazole 5 MG TAB PO SCH (09:00)
--- NOTE | 2019-11-07 17:28 | CDI ---
Documentation Clarification Form Date: 11/07/19 From: Cathi Lui CCS Phone: If you have a question about this query, please contact Mayelin Ferris, [employer] at [phone] between 8am and 5pm. Admit Date: 11/01/19 Discharge Date: 11/04/19 Patient Name: iFna Nam Visit Number: [id number] ATTENTION: The Clinical Documentation Specialists (CDI) and [facility] Coding Staff appreciate your assistance in clarifying documentation. Please respond to the clarification below the line at the bottom and electronically sign. The CDI & [facility] Coding staff will review the response and follow-up if needed. Please note: Queries are made part of the Legal Health Record. If you have any questions, please contact the author of this message via ITS. Dear Dr. Busch, The patients principal diagnosis has not been clearly identified and requires clarification. Patient was admitted to Observation on 10/30/19and made Inpatient on 11/01/19. Patient presented with altered mental status. History/Risk factors: Anxiety, Bipolar, Cannabis dependence Clinical Indicators: Wandering, Altered mental status, confused Lab findings: WBC 11.7 Echo: Normal Other Clinical Indicators: Treatment: IV Rocephin, IVPB Ivanz, Valium, Abilify Consults: Marybel Corona Saeed, Moon In your professional opinion, can you please clarify which diagnosis, after study, is chiefly responsible for the admission from Observation to Inpatient status? Urinary Tract Infection Bipolar Other psychiatric disorder Syncope Altered mental status Other Unable to determine Altered mental status, unable to determine etiology MTDD
== END 2019-11-04 17:55 | disposition home or self-care (01) | DRG 880 ==
LOC: EC 15:42 → 4SSUR 19:12 → EEVIPCON 19:12 → OBSVTOIN 11-01 14:14
PROVIDERS: ADMIT Internal Medicine; ATTEND Internal Medicine
DX: F99 Mental disorder, not otherwise specified (principal); N39.0 Urinary tract infection, site not specified; Z16.12 Extended spectrum beta lactamase (ESBL) resistance; F31.9 Bipolar disorder, unspecified; R00.0 Tachycardia, unspecified; R41.82 Altered mental status, unspecified; R41.3 Other amnesia; F43.10 Post-traumatic stress disorder, unspecified; G43.909 Migraine, unspecified, not intractable, without status migrainosus; R01.1 Cardiac murmur, unspecified; R55 Syncope and collapse; F43.9 Reaction to severe stress, unspecified; F12.20 Cannabis dependence, uncomplicated; F41.1 Generalized anxiety disorder; F41.0 Panic disorder [episodic paroxysmal anxiety]; G47.00 Insomnia, unspecified; B96.1 Klebsiella pneumoniae [K. pneumoniae] as the cause of diseases classified elsewhere; T43.595A Adverse effect of other antipsychotics and neuroleptics, initial encounter; Z91.83 Wandering in diseases classified elsewhere; Z90.49 Acquired absence of other specified parts of digestive tract; Z98.890 Other specified postprocedural states; Z86.69 Personal history of other diseases of the nervous system and sense organs; Z72.89 Other problems related to lifestyle; Z59.1 Inadequate housing; Z88.5 Allergy status to narcotic agent; Z88.0 Allergy status to penicillin; Z80.3 Family history of malignant neoplasm of breast; Z81.8 Family history of other mental and behavioral disorders; Z84.1 Family history of disorders of kidney and ureter
CPT/HCPCS: 36415; 70450; 70496; 71260; 72125; 74177; 76770; 80053; 80074; 80306; 80320; 81001; 81025; 82607; 84443; 84484; 85025; 85610; 85730; 86780; 87077; 87086; 87186; 93005; 93306; 99285